=== PATIENT | female | born 1950 | race Two or more races ===

== ENCOUNTER 2021-02-01 15:18 | Emergency (ER) | payer OTHER ==
[~2021-02-01] VITALS: Ht 124.5 cm; Wt 56.7 kg
[2021-02-01] MEDS ORDERED: ASPirin 81 mg TAB PO ONE (16:15)
[2021-02-01 16:53] LABS: Basophils # (auto) 0.1 10 ^3/uL (0-0.2); Basophils % (auto) 0.6 % (0.0-2.0); Eosinophils # (auto) 0.3 10 ^3/uL (0-0.8); Eosinophils % (auto) 3.4 % (0.0-7.0); Hematocrit 37.4 % (36.0-46.0); Hemoglobin 12.7 g/dL (12.2-16.2); Mean Corpuscular Hemoglobin 32.2 pg (28.0-32.0); Mean Corpuscular Hgb Conc. 33.9 g/dL (32.0-36.0); Mean Corpuscular Volume 95.1 fL (80.0-100.0); Monocytes # (auto) 0.6 10 ^3/uL (0-1.3); Neutrophils # (auto) 5.7 10 ^3/uL (1.6-8.6); Nucleated Red Blood Cells % 0.1 %; Red Blood Cells 3.94 10^6/uL (4.0-5.20); Red Cell Distribution Width 13.2 % (11.8-14.3); White Blood Cell 9.7 10^3/uL (4.4-10.8)
[2021-02-01 17:01] LABS: Albumin 3.6 g/dL (3.4-5.0); Calcium 8.5 mg/dL (8.5-10.1); Potassium 3.7 mmol/L (3.5-5.1)
[2021-02-01 17:07] LABS: BUN/Creatinine Ratio 28.3; Bilirubin, Total 0.2 mg/dL (0.2-1.0); Total Protein 7.4 g/dL (6.4-8.2)
[2021-02-01 18:04] VITALS: BP 137/73
== END 2021-02-01 18:07 | disposition home or self-care (01) ==
LOC: ER 15:18
DX: R07.89 Other chest pain (principal); I10 Essential (primary) hypertension
CPT/HCPCS: 36415; 71045; 80053; 84484; 85025; 93005

== ENCOUNTER 2021-08-18 19:05 | Emergency (ER) | payer OTHER ==
[~2021-08-18] VITALS: Ht 152.4 cm; Wt 56.7 kg
[2021-08-18 22:18] VITALS: BP 144/78
[2021-08-18] MEDS ORDERED: SALI0.6549 (22:28)
== END 2021-08-18 22:35 | disposition home or self-care (01) ==
LOC: ER 19:07
DX: R04.0 Epistaxis (principal); I10 Essential (primary) hypertension; Z88.6 Allergy status to analgesic agent

== ENCOUNTER 2024-06-01 13:17 | Inpatient (IN) | payer OTHER ==
[~2024-06-01] VITALS: Ht 149.9 cm; Wt 62.0 kg
[~2024-06-01 13:17] MED LIST: SALI0.6549
--- NOTE | 2024-06-01 13:47 | ED.PDOC ---
GI ASSESSMENT HPI Comments 73Y F with PMHx HTN, osteoporosis, gallstones, and presents to ED for chief complaint of chest pain/epigastric abd pain x3days. Pt describes the chest/epigastric pain as sharp. Per pt, pain initially began on right side of chest. Pt denies SOB, n/v/d, constipation, and urinary symptoms however she states she had severe pain while walking. Pt is currently taking HCTZ for HTN. Chief Complaint: Abdominal Pain Time Seen by MD: 13:20 Primary Care Provider: DL Reviewed Notes: Nurses Notes, Medications, Allergies Allergies: Coded Allergies: Codeine (Verified Allergy, Severe, 02/01/21) Home Meds Active Scripts Saline (Nasal Moist) 0.65 % Spr, 0.65 % NA Q4HPRN PRN for 7 Days, #1 BOTTLE 0 Refills Prov:NICOLAS WALLACE MD 08/18/21 Information Source: Patient Mode of Arrival: Ambulatory Timing: Days Duration: Since onset Prehospital treatment: None Quality: Sharp Vomitus: None Stool: Normal Severity: Mild Recent: None Recent Hx of: None Pain Location: Epigastric Modifying Factors: Nothing Associated sign and symptoms: Abdominal Pain Past Medical History PAST MEDICAL HISTORY: Gallstones, HTN Surgical History: ELECTRON MICROSCOPIST History: No Pertinent ELECTRON MICROSCOPIST History Family History Family History: Reviewed,noncontributory to illness Social History Smoker: Non-Smoker Alcohol: Denies ETOH Use Drugs: Denies Drug Use Lives In: Home Constitutional: denies: chills, diaphoresis, fatigue, fever, malaise, sweats, weakness, others EENTM: denies: blurred vision, double vision, ear bleeding, ear discharge, ear drainage, ear pain, ear ringing, eye pain, eye redness, hearing loss, mouth pain, mouth swelling, nasal discharge, nose bleeding, nose congestion, nose pain, photophobia, tearing, throat pain, throat swelling, voice changes, others Respiratory: denies: cough, hemoptysis, orthopnea, SOB at rest, shortness of breath, SOB with excertion, stridor, wheezing, others Cardiovascular: denies: chest pain, dizzy spells, diaphoresis, Dyspnea on exertion, edema, irregular heart beat, left arm pain, lightheadedness, palpitations, PND, syncope, others Gastrointestinal: reports: abdominal pain; denies: abdomen distended, blood streaked bowels, constipated, diarrhea, dysphagia, difficulty swallowing, hematemesis, melena, nausea, poor appetite, poor fluid intake, rectal bleeding, rectal pain, vomiting, others Genitourinary: denies: abnormal vagina bleeding, burning, dyspareunia, dysuria, flank pain, frequency, hematuria, incontinence, pain, , vagina d ischarge, urgency, others Neurological: denies: dizziness, fainting, headache, left sided numbness, left sided weakness, numbness, paresthesia, pre-existing deficit, right sided numbness, right sided weakness, seizure, speech problems, tingling, tremors, weakness, others Musculoskeletal: denies: back pain, gout, joint pain, joint swelling, muscle pain, muscle stiffness, neck pain, others Integumetry: denies: bruises, change in color, change in hair/nails, dryness, laceration, lesions, lumps, rash, wounds, others Allergic/Immunocompromised: denies: Difficulty Healing, Frequent Infections, Hives, Itching, others Hematologic/Lymphatic: denies: anemia, blood clots, easy bleeding, easy bruising, swollen glands, others Endocrine: denies: excessive hunger, excessive sweating, excessive thirst, excessive urination, flushing, intolerance to cold, intolerance to heat, unexplained weight gain, unexplained weight loss, others Psychiatric: denies: anxiety, bipolar disorder, depression, hopeless, panic disorder, schizophrenia, sleepless, suicidal, others All Other Systems: Reviewed and Negative Physical Exam General Appearance: Mild Distress HEENT: Other (Pupils symmetric. Moist mucous membranes.) Neck: Full Range of Motion, Normal Inspection Respiratory: Lungs Clear, No Accessory Muscle Use, No Respiratory Distress, Normal Breath Sounds Cardiovascular: No Edema, No JVD, Regular Rate/Rhythm Breast Exam: Deferred Gastrointestinal: Epigastric, Tenderness Genitalia: Deferred Pelvic: Deferred Rectal: Deferred Extremities: Normal inspection, Normal range of motion, Non-tender, No pedal edema Neurologic: Alert (Oriented x4), Normal Affect, Normal Mood, Other (Ambulatory. No gross focal deficit.) Cerebellar Function: NOT DONE Reflexes: NOT DONE Skin: Dry, Normal Color, Warm Lymphatic: NOT DONE EKG EKG : Comments Sinus rhythm, rate 66, normal intervals, normal axis, normal QRS, nonspecific T change. Was a procedure done? Was a procedure done?: No GI differential Dx Differential Diagnosis: AAA, Cholecystitis, Gastritis/PUD, Gastroenteritis, Inflammatory BD, UTI, Stress Ulcer Other Differential Diagnosis ACS, NV, among others X-Ray, Labs, Meds, VS Vital Signs Date Time Temp Pulse Resp B/P (MAP) Pulse Ox O2 Delivery O2 Flow Rate FiO2 06/01/24 15:22 60 18 137/62 06/01/24 15:20 60 18 97 Room Air 06/01/24 15:20 98.2 60 18 137/62 (87) 97 98.2 06/01/24 14:42 65 16 127/56 06/01/24 13:25 66 06/01/24 13:21 97.9 69 18 132/53 (79) 95 06/01/24 13:21 Room Air* 0 21 Lab Test 06/01/24 17:54 06/01/24 15:20 06/01/24 14:48 06/01/24 13:30 Range/Units Troponin I High Sensitivity < 3 L < 3 L < 3 L </=34 ng/L Urine Color Light-yellow Yellow Urine Clarity Clear Clear Urine pH 5.0 5.0-9.0 Urine Specific [place] 1.009 1.001-1.035 Urine Protein Negative Negative Urine Ketones Negative Negative Urine Blood Negative Negative /uL Urine Nitrite Negative Negative Urine Bilirubin Negative Negative Urine Urobilinogen Normal Negative mg/dL Urine Leukocyte Esterase Trace Negative /uL Urine RBC 1 0 - 4 /hpf Urine Microscopic WBC 3 0-5 /HPF Urine Squamous Epithelial Cells Few <5 /hpf Urine Bacteria Few H None Seen /hpf Urine Glucose Normal Normal mg/dL White Blood Count 10.4 4.4-10.8 10^3/uL Red Blood Count 3.65 L 4.0-5.20 10^6/uL Hemoglobin 12.3 12.2-16.2 g/dL Hematocrit 35.5 L 36.0-46.0 % Mean Corpuscular Volume 97.1 80.0-100.0 fL Mean Corpuscular Hemoglobin 33.7 H 28.0-32.0 pg Mean Corpuscular Hemoglobin Concent 34.7 32.0-36.0 g/dL Red Cell Distribution Width 13.1 11.8-14.3 % Platelet Count 277 140-450 10^3/uL Mean Platelet Volume 8.0 6.9-10.8 fL Neutrophils (%) (Auto) 65.6 37.0-80.0 % Lymphocytes (%) (Auto) 28.7 10.0-50.0 % Monocytes (%) (Auto) 3.3 0.0-12.0 % Eosinophils (%) (Auto) 1.9 0.0-7.0 % Basophils (%) (Auto) 0.5 0.0-2.0 % Neutrophils # (Auto) 6.8 1.6-8.6 10 ^3/uL Lymphocytes # (Auto) 3.0 0.4-5.4 10 ^3/uL Monocytes # (Auto) 0.3 0-1.3 10 ^3/uL Eosinophils # (Auto) 0.2 0-0.8 10 ^3/uL Basophils # (Auto) 0.1 0-0.2 10 ^3/uL Nucleated Red Blood Cells 0.0 % Erythrocyte Sedimentation Rate 19 0-20 mm/hr Sodium Level 140 136-145 mmol/L Potassium Level 3.3 L 3.5-5.1 mmol/L Chloride Level 105 98-107 mmol/L Carbon Dioxide Level 25 20-31 mmol/L Anion Gap 10 5-15 Blood Urea Nitrogen 13 9-23 mg/dL Creatinine 0.64 0.550-1.02 mg/dL Glomerular Filtration Rate Calc 94 >90 mL/min BUN/Creatinine Ratio 20.3 H 10.0-20.0 Serum Glucose 134 H 74-106 mg/dL Calcium Level 9.8 8.7-10.4 mg/dL Total Bilirubin 0.4 0.2-1.0 mg/dL Aspartate Amino Transferase (AST) 15 13-40 U/L Alanine Aminotransferase (ALT) 16 7-40 U/L Alkaline Phosphatase 58 46-116 U/L C-Reactive Protein High Sensitivity 0.26 <1.0 mg/dL B-Type Natriuretic Peptide 75.88 0-100 pg/mL Total Protein 6.6 5.7-8.2 g/dL Albumin 4.3 3.2-4.8 g/dL Lipase 35 12-53 U/L Current Medications Medications (Trade) Dose Ordered Sig/Celestino Route Start Time Stop Time Status Last Admin Morphine Sulfate 4 mg ONCE ONCE IV 06/01/24 13:30 06/01/24 13:31 DC 06/01/24 14:42 Ondansetron HCl (Zofran) 4 mg ONCE ONCE IV 06/01/24 13:30 06/01/24 13:31 DC 06/01/24 14:37 Pantoprazole Sodium (Protonix) 40 mg ONCE ONCE IV 06/01/24 13:30 06/01/24 13:31 DC 06/01/24 14:38 Potassium Chloride (Klor-Con Tablet) 40 meq ONCE ONCE PO 06/01/24 17:45 06/01/24 17:46 DC 06/01/24 17:54 ORDERING PHYSICIAN: MIN VANESSA MD PROCEDURE(s): CXRP - CHEST PORTABLE REASON: cp ORDER NUMBER(s): [id number], ACCESSION NUMBER(s): [id number] EXAM: XY CHEST PORTABLE HISTORY: cp COMPARISON: CHEST PORTABLE on DOS: 02/01/21 TECHNIQUE: PA standing view of the chest was performed. FINDINGS: There is central interstitial prominence., similar to that seen previously No pneumothorax, consolidative infiltrates, or pulmonary edema. The heart is not enlarged. IMPRESSION: Reactive airways disease. The lungs are otherwise clear. RING PHYSICIAN: MIN VANESSA MD PROCEDURE(s): GBUS - GALLBLADDER REASON: epig pain h/o gs ORDER NUMBER(s): [id number], ACCESSION NUMBER(s): [id number] INDICATION: epig pain h/o gs TECHNIQUE: Multiple real-time sonographic images were obtained of the right upper quadrant. COMPARISON: None FINDINGS: Mild fatty infiltration of the liver, 12.8 cm. Common bile duct obscured by bowel gas. The gallbladder wall measures 1.8 mm. Gallstones visualized. The right kidney measures 7.5 cm. The right kidney is normal in contour, size, and shape. The echogenicity is normal. There is no hydronephrosis. The pancreas is not well visualized due to overlying bowel gas. IMPRESSION: 1. Gallstones. 2. Limited Exam CT scanning is suggested for further assessment. RING PHYSICIAN: MIN VANESSA MD PROCEDURE(s): ABPL - CT AB PEL WO CON-NO ORAL OR IV REASON: epig pain ORDER NUMBER(s): [id number], ACCESSION NUMBER(s): [id number] EXAM: CT CT AB PEL WO CON-NO ORAL OR IV HISTORY: epig pain COMPARISON: None TECHNIQUE: Helical CT images of the abdomen and pelvis were performed without IV contrast. Sagittal and coronal reformatted images were obtained. This CT exam was performed using one or more of the following dose reduction techniques: Automated exposure control, adjustment of the mA and/or kv according to patient size, or the use of iterative reconstruction techniques. Radiation Dose: Abdomen/Pelvis: CTDIvol 7.54 mGy, DLP 332.71 mGy*cm. FINDINGS: CT abdomen: The lung bases are clear. Probable multiple bile density gallstones. The noncontrast liver, spleen, pancreas, kidneys, and adrenal glands are unremarkable. No abdominal aortic aneurysm. CT pelvis: No abnormal bowel dilatation, free air, or free fluid. The appendix and urinary bladder are unremarkable. The uterus is surgically absent. There is moderate to severe lumbar degenerative disc disease and facet arthropathy. There is a chronic mild superior endplate compression fracture of T11. Areas mild osteoarthritis of the hips. IMPRESSION: 1. Cholelithiasis. 2. Postoperative changes of hysterectomy. 3. Moderate to severe lumbar degenerative disc disease and facet arthropathy, chronic T11 mild compression fracture. 4. No evidence of bowel obstruction, acute appendicitis, or other acute process in the abdomen or pelvis. X-Ray, Labs, Meds, VS Comment 73Y F with PMHx HTN, osteoporosis, gallstones, and presents to ED for chief complaint chest/epigastric pain x3days. Vitals remarkable for BP 132/53 Exam remarkable for epigastric tenderness to palpation Rhythm strip independently interpreted by me: Sinus rhythm, rate 66, no ectopy. CT abdomen and pelvis IMPRESSION: 1. Cholelithiasis. 2. Postoperative changes of hysterectomy. 3. Moderate to severe lumbar degenerative disc disease and facet arthropathy, chronic T11 mild compression fracture. 4. No evidence of bowel obstruction, acute appendicitis, or other acute process in the abdomen or pelvis. Right upper quadrant ultrasound IMPRESSION: 1. Gallstones. 2. Limited Exam Chest x-ray IMPRESSION: Reactive airways disease. The lungs are otherwise clear. Patient treated with the following in the ED: Morphine 4 mg IV, Zofran 4 mg IV, KCl 40 mEq p.o. On re-evaluation, patient states pain has improved. Vitals are stable. There still epigastric tenderness to palpation on exam. Plan is to admit the patient for pain control, GI evaluation and to rule out ACS. Time of 1ST Reevaluation: 13:50 Reevaluation 1ST: Unchanged Patient Education/Counseling: Diagnosis, Treatment Family Education/Counseling: No Family Present Departure 1 Departure Time of Disposition: 16:00 Impression: Primary Impression: Biliary colic Additional Impressions: Hypokalemia Chest pain with high risk for cardiac etiology Disposition: ADMITTED INPATIENT Admit to: Med Surg Condition: Fair Critical Care Note Critical Care Time?: No Stability Stability form required: No Heart Score Heart Score: Heart Score Response (Comments) Value History Moderate Suspicious 1 EKG Repolarization Disturb 1 Age >65 2 Risk Factors 1 or 2 risk factors 1 Troponin Normal limit 0 Total 5 I personally scribed for MIN VANESSA MD (KIRAN) on 06/01/24 at 13:47. Electronically submitted by Jewell Gallagher ([employer]). I personally scribed for MIN VANESSA MD (KIRAN) on 06/01/24 at 14:19. Electronically submitted by Jewell Gallagher ([employer]). I personally scribed for MIN VANESSA MD (KIRAN) on 06/01/24 at 14:29. Electronically submitted by Jewell Gallagher ([employer]). I personally scribed for MIN VANESSA MD (KIRAN) on 06/01/24 at 14:30. Electronically submitted by Jewell Gallagher ([employer]). MIN VANESSA MD Jun 01, 2024 13:47
[2024-06-01 14:05] LABS: Basophils # (auto) 0.1 10 ^3/uL (0-0.2); Basophils % (auto) 0.5 % (0.0-2.0); Eosinophils # (auto) 0.2 10 ^3/uL (0-0.8); Eosinophils % (auto) 1.9 % (0.0-7.0); Hematocrit 35.5 % (36.0-46.0); Hemoglobin 12.3 g/dL (12.2-16.2); Lymphocytes % (auto) 28.7 % (10.0-50.0); Mean Corpuscular Hemoglobin 33.7 pg (28.0-32.0); Mean Corpuscular Hgb Conc. 34.7 g/dL (32.0-36.0); Mean Corpuscular Volume 97.1 fL (80.0-100.0); Monocytes # (auto) 0.3 10 ^3/uL (0-1.3); Monocytes % (auto) 3.3 % (0.0-12.0); Neutrophils # (auto) 6.8 10 ^3/uL (1.6-8.6); Neutrophils % (auto) 65.6 % (37.0-80.0); Platelet Count (auto) 277 10^3/uL (140-450); Red Blood Cells 3.65 10^6/uL (4.0-5.20); Red Cell Distribution Width 13.1 % (11.8-14.3); White Blood Cell 10.4 10^3/uL (4.4-10.8)
--- NOTE | 2024-06-01 14:12 | DVH ---
EXAM: XY CHEST PORTABLE HISTORY: cp COMPARISON: CHEST PORTABLE on DOS: 02/01/21 TECHNIQUE: PA standing view of the chest was performed. FINDINGS: There is central interstitial prominence., similar to that seen previously No pneumothorax, consolida tive infiltrates, or pulmonary edema. The heart is not enlarged. IMPRESSION: Reactive airways disease. The lungs are otherwise clear.
--- NOTE | 2024-06-01 14:24 | DVH ---
EXAM: CT CT AB PEL WO CON-NO ORAL OR IV HISTORY: epig pain COMPARISON: None TECHNIQUE: Helical CT images of the abdomen and pelvis were performed without IV contrast. Sagittal a nd coronal reformatted images were obtained. This CT exam was performed using one or more of the foll owing dose reduction techniques: Automated exposure control, adjustment of the mA and/or kv according to patient size, or the use of iterative reconstruction techniques. Radiation Dose: Abdomen/Pelvis: CTDIvol 7.54 mGy, DLP 332.71 mGy*cm. FINDINGS: CT abdomen: The lung bases are clear. Probable multiple bile density gallstones. The noncon trast liver, spleen, pancreas, kidneys, and adrenal glands are unremarkable. No abdominal aortic aneu rysm. CT pelvis: No abnormal bowel dilatation, free air, or free fluid. The appendix and urinary bladder ar e unremarkable. The uterus is surgically absent. There is moderate to severe lumbar degenerative disc disease and facet arthropathy. There is a chronic mild superior endplate compression fracture of T11 . Areas mild osteoarthritis of the hips. IMPRESSION: 1. Cholelithiasis. 2. Postoperative changes of hysterectomy. 3. Moderate to severe lumbar degenerative disc disease and facet arthropathy, chronic T11 mild compre ssion fracture. 4. No evidence of bowel obstruction, acute appendicitis, or other acute process in the abdomen or pel vis.
[2024-06-01 14:25] LABS: Albumin 4.3 g/dL (3.2-4.8); Anion Gap 10 (5-15); Calcium 9.8 mg/dL (8.7-10.4); Carbon Dioxide 25 mmol/L (20-31); Chloride 105 mmol/L (98-107); Lipase 35 U/L (12-53); Sodium 140 mmol/L (136-145)
[2024-06-01 14:26] LABS: Bilirubin, Total 0.4 mg/dL (0.2-1.0)
--- NOTE | 2024-06-01 14:26 | DVH ---
INDICATION: epig pain h/o gs TECHNIQUE: Multiple real-time sonographic images were obtained of the right upper quadrant. COMPARISON: None FINDINGS: Mild fatty infiltration of the liver, 12.8 cm. Common bile duct obscured by bowel gas. The gallbladder wall measures 1.8 mm. Gallstones visualized. The right kidney measures 7.5 cm. The right kidney is normal in contour, size, and shape. The echog enicity is normal. There is no hydronephrosis. The pancreas is not well visualized due to overlying bowel gas. IMPRESSION: 1. Gallstones. 2. Limited Exam CT scanning is suggested for further assessment.
[2024-06-01] MEDS: ONDANSETRON HCL 4 MG/2 ML VIAL IV ONE (14:37)
[2024-06-01] MEDS: PANTOPRAZOLE 40 MG/10 ML VIAL INJ IV ONE (14:38)
[2024-06-01] MEDS: MORPHINE SULFATE 4 MG/ML SYR/VIAL IV ONE (14:42)
[2024-06-01 14:49] LABS: Glucose 134 mg/dL (74-106); Potassium 3.3 mmol/L (3.5-5.1)
[2024-06-01 15:06] LABS: BUN/Creatinine Ratio 20.3 (10.0-20.0)
[2024-06-01 15:07] LABS: Alanine Aminotransferase 16 U/L (7-40); Alkaline Phosphatase 58 U/L (46-116); Aspartate Aminotransferase 15 U/L (13-40); Blood Urea Nitrogen 13 mg/dL (9-23); Total Protein 6.6 g/dL (5.7-8.2)
[2024-06-01 16:03] LABS: Urine Bacteria FEW /hpf (None Seen); Urine Blood Negative /uL (Negative); Urine Clarity Clear (Clear); Urine Color Light-Yellow (Yellow); Urine Protein, UAD Negative (Negative); Urine Specific Gravity 1.009 (1.001-1.035); Urine Squamous Epithelial Cell FEW /hpf (<5); Urine Urobilinogen Normal (Negative); Urine WBC 3 /HPF (0-5)
[2024-06-01] MEDS: POTASSIUM CHL 20 Meq TABLET PO ONE (17:54)
--- NOTE | 2024-06-01 18:19 | ECG ---
[facility] Test Date: 2024-06-01 Test Time: 13:25:27 Pat Name: PETER MORALES Department: ER Room: 0216T Gender: F Title Manager: ER : 1950 Requested By: MIN REYES Order Number: [id number] Reading MD: Fazal Cunningham Measurements Intervals [place] Rate: 66 P: 57 IN: 176 QRS: 52 QRSD: 82 T: 53 QT: 420 QTc: 441 Interpretive Statements Sinus rhythm Abnormal R-wave progression, early transition Minimal ST elevation, inferior leads Electronically Signed On 06-02-2024 18:47:15 PST by Fazal Cunningham Please click the below link to view image of tracing.
[2024-06-01] MEDS ORDERED: DOCUSATE SOD 100 MG CAP PO PRN (19:30)
[2024-06-01] MEDS ORDERED: SODIUM CHLORIDE 0.9% 1,000 ML IV SCH (19:30)
[2024-06-01] MEDS ORDERED: ONDANSETRON HCL 4 MG/2 ML VIAL IV PRN ×2 (19:30→19:45)
[2024-06-01] MEDS ORDERED: MORPHINE SULFATE INJ 2 MG/ml SYRG IV PRN ×3 (19:30→19:45)
[2024-06-01] MEDS ORDERED: ACETAMINOPHEN 325 MG TAB PO PRN (19:30)
[2024-06-01] MEDS ORDERED: NITROGLYCERIN 0.4 MG SL TAB SL PRN (19:45)
--- NOTE | 2024-06-01 19:52 | DVHHP2 ---
History of Present Illness Reason for Visit: Chest pain History of Present Illness Patient was a 73-year-old female presenting to the emergency room with chest pain and epigastric pain. Patient reports that two days ago she was awakened from her sleep with substernal chest pain, also radiating to the right side of her chest, that she described as indigestion. She denies having any nausea or vomiting, diaphoresis, or dizziness with an episode. The patient now reports having persistent epigastric pain, worsening with activity. She denies having any other associated symptoms. Patient has a known history of cholelithiasis, and states that this pain is different than when she had problems with her abdominal pain in the past. Patient was negative with her Blevins's sign. Troponins at this time are all negative. Mild ST changes noted, nonspecific on 12 lead ECG. Patient will be admitted for rule out ACS. Cardiovascular: HTN Pulmonary: Other (Nicotine dependence) Past Surgical History: Smoke: # pack years (Patient was states she smoked one pack of cigarettes for the past 40 years, now intermittently smokes.) ALCOHOL: none Drugs: None Lives: with Family Domestic Violence: Neg Review of Systems Constitutional: No: Fever, Chills, Sweats, Weakness, Malaise, Other Eyes: No: Pain, Vision change, Conjunctivae inflammation, Eyelid inflammation, Other, Redness ENT: No: Ear pain, Ear discharge, Nose pain, Nose discharge, Nose congestion, Mouth pain, Mouth swelling, Throat pain, Throat swelling, Other Respiratory: No: Cough, Dry, Shortness of breath, SOB with excertion, Wheezing, Hemoptysis, Pleuritic Pain, Sputum, Wheezing, Other Cardiovascular: Chest Pain Gastrointestinal: Abdominal Pain Genitourinary: No Dysuria, No Frequency, No Incontinence, No Hematuria, No Retention, No Other Musculoskeletal: No: other, neck pain, shoulder pain, arm pain, back pain, hand pain, leg pain, foot pain Skin: No: Rash, Lesions, Jaundice, Bruising, Other Neurological: No: Weakness, Numbness, Incoordination, Change in speech, Confusion, Seizures, Other Allergies: Coded Allergies: Codeine (Verified Allergy, Severe, 02/01/21) Medications Current Medications Medications Dose Ordered Sig/Celestino Route Start Time Stop Time Status Last Admin Dose Admin Pantoprazole Sodium 40 mg DAILY IV 06/02/24 10:00 Ondansetron HCl 4 mg Q4HP PRN IV 06/01/24 19:30 Docusate Sodium 100 mg BIDPRN PRN PO 06/01/24 19:30 Acetaminophen 650 mg Q6HP PRN PO 06/01/24 19:30 Morphine Sulfate 2 mg Q4HPRN PRN IV 06/01/24 19:30 Nitroglycerin 0.4 mg Q5MINP PRN SL 06/01/24 19:45 UNV Morphine Sulfate 2 mg Q30M PRN IV 06/01/24 19:45 UNV Morphine Sulfate 1 mg Q4HPRN PRN IV 06/01/24 19:45 UNV Acetaminophen/ Hydrocodone Bitart 1 tab Q6HPRN PRN PO 06/01/24 19:45 UNV Acetaminophen 500 mg Q8HP PRN PO 06/01/24 19:45 UNV Ondansetron HCl 4 mg Q6HP PRN IV 06/01/24 19:45 UNV Exam Vital Signs Vital Signs Date Time Temp Pulse Resp B/P (MAP) Pulse Ox O2 Delivery O2 Flow Rate FiO2 06/01/24 15:22 60 18 137/62 06/01/24 15:20 97 Room Air 06/01/24 15:20 98.2 98.2 06/01/24 13:21 0 21 General Appearance: Alert, Oriented X3, Cooperative, mild distress HEENT: Atraumatic, PERRLA Respiratory: Clear to auscultation Cardiovascular: Normal S1, Normal S2 Abdominal: Normal bowel sounds, No tenderness Neuro: Normal speech, Strength at 5/5 X4 ext, Normal tone, Sensation intact, Cranial nerves 3-12 NL Psych/Mental Status: Mental status NL, Mood NL Labs/Xrays Labs Test 06/01/24 17:54 06/01/24 15:20 06/01/24 13:30 Range/Units Troponin I High Sensitivity < 3 L </=34 ng/L Urine Color Light-yellow Yellow Urine Clarity Clear Clear Urine pH 5.0 5.0-9.0 Urine Specific [place] 1.009 1.001-1.035 Urine Protein Negative Negative Urine Ketones Negative Negative Urine Blood Negative Negative /uL Urine Nitrite Negative Negative Urine Bilirubin Negative Negative Urine Urobilinogen Normal Negative mg/dL Urine Leukocyte Esterase Trace Negative /uL Urine RBC 1 0 - 4 /hpf Urine Microscopic WBC 3 0-5 /HPF Urine Squamous Epithelial Cells Few <5 /hpf Urine Bacteria Few H None Seen /hpf Urine Glucose Normal Normal mg/dL White Blood Count 10.4 4.4-10.8 10^3/uL Red Blood Count 3.65 L 4.0-5.20 10^6/uL Hemoglobin 12.3 12.2-16.2 g/dL Hematocrit 35.5 L 36.0-46.0 % Mean Corpuscular Volume 97.1 80.0-100.0 fL Mean Corpuscular Hemoglobin 33.7 H 28.0-32.0 pg Mean Corpuscular Hemoglobin Concent 34.7 32.0-36.0 g/dL Red Cell Distribution Width 13.1 11.8-14.3 % Platelet Count 277 140-450 10^3/uL Mean Platelet Volume 8.0 6.9-10.8 fL Neutrophils (%) (Auto) 65.6 37.0-80.0 % Lymphocytes (%) (Auto) 28.7 10.0-50.0 % Monocytes (%) (Auto) 3.3 0.0-12.0 % Eosinophils (%) (Auto) 1.9 0.0-7.0 % Basophils (%) (Auto) 0.5 0.0-2.0 % Neutrophils # (Auto) 6.8 1.6-8.6 10 ^3/uL Lymphocytes # (Auto) 3.0 0.4-5.4 10 ^3/uL Monocytes # (Auto) 0.3 0-1.3 10 ^3/uL Eosinophils # (Auto) 0.2 0-0.8 10 ^3/uL Basophils # (Auto) 0.1 0-0.2 10 ^3/uL Nucleated Red Blood Cells 0.0 % Sodium Level 140 136-145 mmol/L Potassium Level 3.3 L 3.5-5.1 mmol/L Chloride Level 105 98-107 mmol/L Carbon Dioxide Level 25 20-31 mmol/L Anion Gap 10 5-15 Blood Urea Nitrogen 13 9-23 mg/dL Creatinine 0.64 0.550-1.02 mg/dL Glomerular Filtration Rate Calc 94 >90 mL/min BUN/Creatinine Ratio 20.3 H 10.0-20.0 Serum Glucose 134 H 74-106 mg/dL Calcium Level 9.8 8.7-10.4 mg/dL Total Bilirubin 0.4 0.2-1.0 mg/dL Aspartate Amino Transferase (AST) 15 13-40 U/L Alanine Aminotransferase (ALT) 16 7-40 U/L Alkaline Phosphatase 58 46-116 U/L B-Type Natriuretic Peptide 75.88 0-100 pg/mL Total Protein 6.6 5.7-8.2 g/dL Albumin 4.3 3.2-4.8 g/dL Lipase 35 12-53 U/L Assessment/Plan Assessment/Plan Impression: -rule out ACS -cholelithiasis -nicotine dependence -primary hypertension -hypokalemia Plan: -admit to telemetry floor -cardiology consultation -echocardiogram -PPI -gallbladder ultrasound reviewed -potassium replacement -repeat labs in a.m. After having a thorough discussion with the patient, with her having persistent substernal chest pain, worsening with ambulation, he was discussed with the patient should be evaluated overnight, with echocardiogram, cardiology consultation. While PUD/GERD may be part of the differential diagnosis, patient was have risk factors for heart disease in addition to having mild changes in EKG. Total time spent with patient discussing and formulating plan of care: 35 minutes. This medical document was created using an electronic medical record system with [employer] dictation system. Although this document has been carefully reviewed, there may still be some phonetic and typographical errors. These areas are purely typographical due to imperfections of the software programs, and do not reflect any compromise in the patient's medical care. Plan discussed with: Patient, Other (RN) My Orders Orders - JEFFREY STILES [employer] Procedure Category Date Status Time Admit ADMIT 06/01/24 Transmitted 19:38 Nitroglycerin PHA 06/01/24 Logged Sublingual (Ntrostat 19:45 Morphine Sulfate PHA 06/01/24 Logged Injection 19:45 Stat Ekg For Chest CORTEZ 06/01/24 In Process Pain 19:38 Notify Of Changes CORTEZ 06/01/24 In Process From Base 19:38 Sustainable Landscape Architect For CORTEZ 06/01/24 In Process 24 Hours 19:38 Emergency Dysrhythmia CORTEZ 06/01/24 In Process Protocol 19:38 Rhythm Strips Once CORTEZ 06/01/24 In Process Every Shift 19:38 Oxygen By Nasal RT 06/01/24 Transmitted Cannula 19:38 Echo 2d Mode Cardiac US 06/01/24 Logged DOP 19:38 Erythrocyte LAB 06/01/24 Logged Sedimentation Rate 19:38 C-Reactive Protein LAB 06/01/24 Logged 19:38 Morphine Sulfate PHA 06/01/24 Logged Injection 19:45 Hydrocodone-Acet PHA 06/01/24 Logged 5/325mg Tab (Willard 19:45 Acetaminophen Tab Or PHA 06/01/24 Logged Cap (Tylenol Tablet 19:45 Ondansetron Hcl PHA 06/01/24 Logged (Zofran) 19:45 Cardiac DIET 06/02/24 Verified Diet-2gna,Lofat,Lochol Breakfast Date of Service: Jun 01, 2024 Billing Provider: JEFFREY STILES NP Common Visit Codes: [id number] INP/OBS CARE (HIGH) JEFFREY STILES NP Jun 01, 2024 19:52
[2024-06-01 20:33] LABS: Erythrocyte Sedimentation Rate 19 mm/hr (0-20)
[2024-06-01 22:22] VITALS: BP 105/57; PULSE 60; RESP 18; TEMP 97.5; O2SAT 98
[2024-06-01 22:43] VITALS: PULSE 60; RESP 18; O2SAT 96
[2024-06-02] VITALS (8 sets, daily range): BP systolic 107–137; BP diastolic 56–72; PULSE 53–74; RESP 16–20; TEMP 97.5–98.2; O2SAT 92–100
[2024-06-02] MEDS: ACETAMINOPHEN 500 MG TAB or CAP PO PRN (00:18)
[2024-06-02] MEDS: PANTOPRAZOLE 40 MG TAB PO SCH (06:04)
[2024-06-02 06:59] LABS: Basophils # (auto) 0.1 10 ^3/uL (0-0.2); Basophils % (auto) 0.6 % (0.0-2.0); Eosinophils # (auto) 0.2 10 ^3/uL (0-0.8); Eosinophils % (auto) 2.3 % (0.0-7.0); Hematocrit 35.3 % (36.0-46.0); Hemoglobin 11.9 g/dL (12.2-16.2); Lymphocytes # (auto) 2.3 10 ^3/uL (0.4-5.4); Mean Corpuscular Hemoglobin 33.1 pg (28.0-32.0); Mean Corpuscular Hgb Conc. 33.8 g/dL (32.0-36.0); Mean Corpuscular Volume 97.9 fL (80.0-100.0); Monocytes # (auto) 0.6 10 ^3/uL (0-1.3); Monocytes % (auto) 6.4 % (0.0-12.0); Neutrophils % (auto) 65.7 % (37.0-80.0); Nucleated Red Blood Cells % 0.1 %; Platelet Count (auto) 250 10^3/uL (140-450); Red Blood Cells 3.61 10^6/uL (4.0-5.20); Red Cell Distribution Width 12.9 % (11.8-14.3); White Blood Cell 9.2 10^3/uL (4.4-10.8)
[2024-06-02 07:22] LABS: Alanine Aminotransferase 14 U/L (7-40); Alkaline Phosphatase 50 U/L (46-116); Anion Gap 7 (5-15); BUN/Creatinine Ratio 22.9 (10.0-20.0); Blood Urea Nitrogen 16 mg/dL (9-23); Calcium 9.3 mg/dL (8.7-10.4); Carbon Dioxide 25 mmol/L (20-31); Glucose 92 mg/dL (74-106); Potassium 3.8 mmol/L (3.5-5.1); Sodium 141 mmol/L (136-145); Total Protein 6.2 g/dL (5.7-8.2)
[2024-06-02 07:23] LABS: Albumin 3.9 g/dL (3.2-4.8); Aspartate Aminotransferase 13 U/L (13-40); Bilirubin, Total 0.3 mg/dL (0.2-1.0)
[2024-06-02 07:30] LABS: Chloride 109 mmol/L (98-107)
[2024-06-02] MEDS ORDERED: PANTOPRAZOLE 40 MG/10 ML VIAL INJ IV SCH (10:00)
[2024-06-02] MEDS ORDERED: HYDR25TA4 PO (10:29)
[2024-06-02] MEDS ORDERED: RALO60TA14 PO (10:30)
[2024-06-02] MEDS: NICOTINE 7MG/24HR TOPICAL PATCH TD ONE (11:30)
--- NOTE | 2024-06-02 11:34 | DVHINCON2 ---
Date Seen: Jun 02, 2024 Referring Physician CISCO Vazquez Reason for Consultation Rule out ACS History of Present Illness This is a 73-year-old female who presented to the emergency room with a chief complaint of chest pain. The patient reports she experienced chest pain this past Monday/Monday and described as substernal, persistent, and as a burning sensation after eating a late dinner. Later on the pain progressed to the epigastric area prompting her to seek further medical attention. Denies palpitations, diaphoresis, shortness of breath, dizziness, or syncopal events. She underwent a 12 lead electrocardiogram revealing a sinus rhythm with early repolarization. Serial troponin levels are negative. Family history is significant for two brothers with coronary artery disease undergoing PCIs with stent placement. Significant medical history includes hypertension, cholelithiasis, osteoporosis, lumbar DDD, and remote heavy tobacco use for 40 years and now occasionally. Past Medical History Past medical history reviewed. No other significant than mentioned above. Past Surgical History Hysterectomy Family History: Arthritis G8 MOTHER Hypertension G8 MOTHER Family History Significant for CV disease including two brothers with CAD undergoing PCIs with stent placement. Social History Heavy tobacco use for 40 years and now occasionally. Denies use of alcohol or drug abuse. Allergies: Coded Allergies: Codeine (Verified Allergy, Severe, 02/01/21) Home Meds Active Scripts Saline (Nasal Moist) 0.65 % Spr, 0.65 % NA Q4HPRN PRN for 7 Days, #1 BOTTLE 0 Refills Prov:NICOLAS WALLACE MD 08/18/21 Reported Medications Raloxifene Hydrochloride (EVISTA TABLET) 60 Mg Tb, 1 TAB PO DAILY, #30 TAB 11 Refills 06/02/24 Hydrochlorothiazide (Hydrochlorothiazide) 25 Mg Tab, 1 TAB PO DAILY for HTN, #30 TAB 5 Refills 06/02/24 Home Meds Home medications reviewed. Current Medications Current Medications Medications (Trade) Dose Ordered Sig/Celestino Route PRN Reason Start Time Stop Time Status Last Admin Pantoprazole Sodium (Protonix) 40 mg DAILY IV 06/02/24 10:00 06/01/24 19:48 DC Sodium Chloride 1,000 ml @ 60 mls/hr [id number] IV 06/01/24 19:30 06/01/24 19:41 DC Ondansetron HCl (Zofran) 4 mg Q4HP PRN IV NAUSEA / VOMITING 06/01/24 19:30 06/01/24 19:48 DC Docusate Sodium (Colace Capsule) 100 mg BIDPRN PRN PO FOR CONSTIPATION 06/01/24 19:30 06/01/24 19:48 DC Acetaminophen (Tylenol Tablet) 650 mg Q6HP PRN PO PAIN SCALE 1-3 OR TEMP>100.4 06/01/24 19:30 06/01/24 19:48 DC Morphine Sulfate 2 mg Q4HPRN PRN IV SEVERE PAIN (7-10 PAIN SCALE) 06/01/24 19:30 06/01/24 19:48 DC Nitroglycerin (Ntrostat Sublingual) 0.4 mg Q5MINP PRN SL FOR CHEST PAIN 06/01/24 19:45 Morphine Sulfate 2 mg Q30M PRN IV FOR CHEST PAIN 06/01/24 19:45 Morphine Sulfate 1 mg Q4HPRN PRN IV SEVERE PAIN (7-10 PAIN SCALE) 06/01/24 19:45 Acetaminophen/ Hydrocodone Bitart ([place] 5/325MG Tab) 1 tab Q6HPRN PRN PO MODERATE PAIN (4-6 PAIN SCALE) 06/01/24 19:45 Acetaminophen (Tylenol Tablet Or Capsule) 500 mg Q8HP PRN PO PAIN SCALE 1-3 OR TEMP>100.4 06/01/24 19:45 06/02/24 00:18 Ondansetron HCl (Zofran) 4 mg Q6HP PRN IV NAUSEA / VOMITING 06/01/24 19:45 Pantoprazole Sodium (Protonix Tablet) 40 mg DAILY@0600 PO 06/02/24 06:00 06/02/24 06:08 Review of Systems Constitutional: No symptom reported Ears, Nose, & Throat: No symptom reported Eyes: No symptom reported Neurological: No symptoms reported Pulmonary/Respiratory: No symptom reported Cardiovascular: Chest pain Gastrointestinal: Epigastric pain Genitourinary: No symptom reported Musculoskeletal: No symptom reported Skin: No symptom reported Psychiatric: No symptom reported Endocrine: No symptom reported Hemotologic/Lymphatic: No symptom reported Vital Signs Vital Signs Date Time Temp Pulse Resp B/P (MAP) Pulse Ox O2 Delivery O2 Flow Rate FiO2 06/02/24 09:00 97.5 56 20 115/72 (86) 92 97.5 06/02/24 08:00 Room Air* 0 21 Physical Exam General Appearance: Cooperative. Well developed. Well nourished. In no acute distress Head Exam: Normal inspection Neck Exam: Normal inspection. Non-tender. Normal alignment Pulmonary/Respiratory: Chest non-tender. Clear bilateral breath sounds Cardiovascular/Chest: Regular rate and rhythm. S1, S2. Sinus rhythm with early repolarization. No murmurs. No JVD. Peripheral Pulses: 2+ Radial (R). 2+ Radial (L). 2+ Pedal (R). 2+ Pedal (L) Abdominal Exam: Normal bowel sounds. Soft. Nontender. No hepatospenomegaly. No masses Ankle Exam: Negative ankle edema Lower extremities: Negative lower extremity edema Neuro/Mental Status: A&O x4. Coherent Thoughts/Psych: Normal thought pattern. Appropriate mood and affect. Good judgement and insight Appearance: In no acute distress Skin Exam: Normal inspection. Normal color. Warm. Dry Labs/Diagnostic Data Labs Test 06/02/24 06:25 06/01/24 17:54 06/01/24 15:20 06/01/24 13:30 Range/Units White Blood Count 9.2 4.4-10.8 10^3/uL Red Blood Count 3.61 L 4.0-5.20 10^6/uL Hemoglobin 11.9 L 12.2-16.2 g/dL Hematocrit 35.3 L 36.0-46.0 % Mean Corpuscular Volume 97.9 80.0-100.0 fL Mean Corpuscular Hemoglobin 33.1 H 28.0-32.0 pg Mean Corpuscular Hemoglobin Concent 33.8 32.0-36.0 g/dL Red Cell Distribution Width 12.9 11.8-14.3 % Platelet Count 250 140-450 10^3/uL Mean Platelet Volume 8.0 6.9-10.8 fL Neutrophils (%) (Auto) 65.7 37.0-80.0 % Lymphocytes (%) (Auto) 25.0 10.0-50.0 % Monocytes (%) (Auto) 6.4 0.0-12.0 % Eosinophils (%) (Auto) 2.3 0.0-7.0 % Basophils (%) (Auto) 0.6 0.0-2.0 % Neutrophils # (Auto) 6.0 1.6-8.6 10 ^3/uL Lymphocytes # (Auto) 2.3 0.4-5.4 10 ^3/uL Monocytes # (Auto) 0.6 0-1.3 10 ^3/uL Eosinophils # (Auto) 0.2 0-0.8 10 ^3/uL Basophils # (Auto) 0.1 0-0.2 10 ^3/uL Nucleated Red Blood Cells 0.1 % Sodium Level 141 136-145 mmol/L Potassium Level 3.8 3.5-5.1 mmol/L Chloride Level 109 H 98-107 mmol/L Carbon Dioxide Level 25 20-31 mmol/L Anion Gap 7 5-15 Blood Urea Nitrogen 16 9-23 mg/dL Creatinine 0.70 0.550-1.02 mg/dL Glomerular Filtration Rate Calc 92 >90 mL/min BUN/Creatinine Ratio 22.9 H 10.0-20.0 Serum Glucose 92 74-106 mg/dL Calcium Level 9.3 8.7-10.4 mg/dL Total Bilirubin 0.3 0.2-1.0 mg/dL Aspartate Amino Transferase (AST) 13 13-40 U/L Alanine Aminotransferase (ALT) 14 7-40 U/L Alkaline Phosphatase 50 46-116 U/L Total Protein 6.2 5.7-8.2 g/dL Albumin 3.9 3.2-4.8 g/dL Troponin I High Sensitivity < 3 L </=34 ng/L Urine Color Light-yellow Yellow Urine Clarity Clear Clear Urine pH 5.0 5.0-9.0 Urine Specific [place] 1.009 1.001-1.035 Urine Protein Negative Negative Urine Ketones Negative Negative Urine Blood Negative Negative /uL Urine Nitrite Negative Negative Urine Bilirubin Negative Negative Urine Urobilinogen Normal Negative mg/dL Urine Leukocyte Esterase Trace Negative /uL Urine RBC 1 0 - 4 /hpf Urine Microscopic WBC 3 0-5 /HPF Urine Squamous Epithelial Cells Few <5 /hpf Urine Bacteria Few H None Seen /hpf Urine Glucose Normal Normal mg/dL Erythrocyte Sedimentation Rate 19 0-20 mm/hr C-Reactive Protein High Sensitivity 0.26 <1.0 mg/dL B-Type Natriuretic Peptide 75.88 0-100 pg/mL Lipase 35 12-53 U/L Assessment Chest pain rule out coronary artery disease Significant family history for CAD Primary hypertension Nicotine dependence Plan/Recommendation (Dr. Cunningham) Scheduled for a transthoracic echocardiogram to evaluate cardiac function and a Cardiolite stress test to rule out coronary ischemia. In the meantime, initiate single-antiplatelet therapy and nicotine patch. Continue PPI. Monitor ECG changes and notify accordingly. Continue chest pain protocol. Thank you for allowing us to participate in this patient's care. Please call if you have any questions or concerns. This medical document was created using an electronic medical record system with voice recognition software and computerized dictation system. Although this document has been carefully reviewed, there might still be some phonetic and ty pographical errors. Occasional wrong-word or ``sound-alike substitutions may have occurred due to the inherent limitations of voice recognition software. These areas are purely typographical due to imperfections of the software programs and do not reflect any compromise in the patient's medical care. Please read the chart carefully and recognize, using context, where these sub stitutions have occurred. Plan discussed with: Patient, Other NYHA Physical activity limitations: NA Date of Service: Jun 02, 2024 Billing Provider: GENOVEVA WOODY Cardiology Common Codes: [id number] INP/OBS CARE (High) GENOVEVA WOODY Jun 02, 2024 11:34
[2024-06-02 12:29] LABS: Triglycerides 155 mg/dL (< 150)
[2024-06-02 12:30] LABS: LDL Cholesterol 88 mg/dL (< 100)
[2024-06-02 12:31] LABS: Cholesterol 133 mg/dL (< 200)
[2024-06-02 12:35] LABS: HDL Cholesterol 30 mg/dL (40-59)
--- NOTE | 2024-06-02 12:37 | DVHPN2 ---
Subjective 73-year-old female with a history significant for hypertension osteoporosis and gallstones came with chief complaint of abdominal pain for 2 days. The pain is in the epigastric area associated with some chest pain with no radiation and no nausea or vomiting He had it before few months before and she was told she has gallstones and she went and saw a surgeon but she elected to wait and did not have surgery for it Today her pain has resolved. She had the pain actually at work 2 days ago after she ate pizza for lunch. Changes from previous H/P or p: Changes Eyes: No Pain, No Vision change, No Conjunctivae inflammation, No Eyelid inflammation, No Other, No Redness ENT: No Ear pain, No Ear discharge, No Nose pain, No Nose discharge, No Nose congestion, No Mouth pain, No Mouth swelling, No Throat pain, No Throat swelling, No Other Cardiovascular: Chest Pain Respiratory: No Cough, No Dry, No Shortness of breath, No SOB with excertion, No Wheezing, No Hemoptysis, No Pleuritic Pain, No Sputum, No Other Gastrointestinal: Abdominal Pain Genitourinary: No Dysuria, No Frequency, No Incontinence, No Hematuria, No Retention, No Other Musculoskeletal: No other, No neck pain, No shoulder pain, No arm pain, No back pain, No hand pain, No leg pain, No foot pain Skin: No Rash, No Lesions, No Jaundice, No Bruising, No Other Objective Vitals Vital Signs Date Time Temp Pulse Resp B/P (MAP) Pulse Ox O2 Delivery O2 Flow Rate FiO2 06/02/24 09:00 97.5 56 20 115/72 (86) 92 97.5 06/02/24 08:00 Room Air* 0 21 Intake/Output Intake and Output 06/02/24 07:00 Intake Total 150 ml Balance 150 ml Intake Oral 150 ml # Voids 3 General Appearance: Alert, Oriented X3, Cooperative, No acute distress Lungs: Clear to auscultation, Normal air movement Cardiovascular: Regular rate, Normal S1 Abdomen: Normal bowel sounds, Soft, No tenderness Extremities: No edema Medications Current Medications Medications Dose Ordered Sig/Celestino Route Start Time Stop Time Status Last Admin Dose Admin Nitroglycerin 0.4 mg Q5MINP PRN SL 06/01/24 19:45 Morphine Sulfate 2 mg Q30M PRN IV 06/01/24 19:45 Morphine Sulfate 1 mg Q4HPRN PRN IV 06/01/24 19:45 Acetaminophen/ Hydrocodone Bitart 1 tab Q6HPRN PRN PO 06/01/24 19:45 Acetaminophen 500 mg Q8HP PRN PO 06/01/24 19:45 06/02/24 00:18 500 MG Ondansetron HCl 4 mg Q6HP PRN IV 06/01/24 19:45 Pantoprazole Sodium 40 mg DAILY@0600 PO 06/02/24 06:00 06/02/24 06:08 40 MG Aspirin 81 mg DAILY PO 06/03/24 10:00 Nicotine 1 patch DAILY TD 06/03/24 10:00 Laboratory Results Laboratory Tests 06/02/24 06:25 Chemistry Test 06/01/24 13:30 06/02/24 06:25 Albumin 4.3 g/dL (3.2-4.8) 3.9 g/dL (3.2-4.8) Calcium Level 9.8 mg/dL (8.7-10.4) 9.3 mg/dL (8.7-10.4) Total Protein 6.6 g/dL (5.7-8.2) 6.2 g/dL (5.7-8.2) Lipid panel Test 06/01/24 13:30 06/02/24 06:25 Lipase 35 U/L (12-53) Cholesterol Level Pending HDL Cholesterol Pending Triglycerides Level 155 mg/dL (< 150) H Cardiac Markers Test 06/01/24 13:30 B-Type Natriuretic Peptide 75.88 pg/mL (0-100) LFT Test 06/01/24 13:30 06/02/24 06:25 Alanine Aminotransferase (ALT) 16 U/L (7-40) 14 U/L (7-40) Alkaline Phosphatase 58 U/L (46-116) 50 U/L (46-116) Aspartate Amino Transferase (AST) 15 U/L (13-40) 13 U/L (13-40) Total Bilirubin 0.4 mg/dL (0.2-1.0) 0.3 mg/dL (0.2-1.0) HgA1c, TSH Test 06/02/24 06:25 Hemoglobin A1c Pending Thyroid Stimulating Hormone (TSH) Pending Urinalysis Test 06/01/24 15:20 Urine Color Light-yellow (Yellow) Urine Clarity Clear (Clear) Urine pH 5.0 (5.0-9.0) Urine Specific [place] 1.009 (1.001-1.035) Urine Protein Negative (Negative) Urine Ketones Negative (Negative) Urine Blood Negative /uL (Negative) Urine Nitrite Negative (Negative) Urine Bilirubin Negative (Negative) Urine Urobilinogen Normal mg/dL (Negative) Urine Leukocyte Esterase Trace /uL (Negative) Urine RBC 1 /hpf (0 - 4) Urine Microscopic WBC 3 /HPF (0-5) Urine Squamous Epithelial Cells Few /hpf (<5) Urine Bacteria Few /hpf (None Seen) H Urine Glucose Normal mg/dL (Normal) Assessment/Plan Assessment/Plan Abdominal pain Chest pain most likely due to GI source Gallstones Hypertension Osteoporosis Chronic low back pain Hypokalemia Systolic heart murmur Nicotine dependence Plan Order a HIDA scan to rule out gallbladder disease Cardiology consult recommended an echocardiogram and Cardiolite stress test Continue the home medications Nicotine patch Protonix Replace potassium as needed Aspirin cardiac diet Full code Plan discussed with: Patient Date of Service: Jun 02, 2024 Billing Provider: KESHIA DOBBS MD Common Visit Codes: NOT BILLABLE KESHIA DOBBS MD Jun 02, 2024 12:37
--- NOTE | 2024-06-02 13:47 | DVHSR ---
APPROVED REPORT EXAM: Two-dimensional and M-mode echocardiogram with Doppler and color Doppler. Blood Pressure: 108/56 mmHg INDICATION ACS RISK FACTORS Height: 50, Weight: 132 DIMENSIONS LVDd (3.8-5.7cm)LA (2D)3.7 (1.9-4.0cm)Aortic Root3.2 (2.0-3.7cm) LVDs (2.5-4.0cm)LA (MM) (1.9-4.0cm)Aortic Cusp Exc1.6 (1.5-2.0cm) EF (%) 69.0 (55-70%)Rt. Atrium3.4 (1.9-4.0cm)Asc. Aorta cm Mitral Valve MitralMitral Stenosis E wave0.71m/sMV Mean GR.mmHg A wave1.08m/sMV Peak GR.mmHg E/A ratio0.72D MVAcm2 DECEL [id number] 1/2 [id number] IVRTmsDop MVA3.71cm2 Aortic Valve Aortic ValveAortic Stenosis V11.47m/Lena Mean GR.6mmHg V21.83m/Lena Peak GR.13mmHg LVOT Diameter1.6 (1.8-2.4cm)Doppler AVA1.61cm2 AI P 1/2 Tywl104.78ms Pulmonic Valve V21.09m/s Tricuspid Valve TR Velocity2.11m/s [id number] Conclusion Technically good study. Sinus rhythm. Normal chamber sizes. Normal valves. EF of 60% with normal RV function. [id number] aortic insufficiency. No pericardial effusion masses or vegetations.
[2024-06-02] MEDS: HYDROcodone-ACET 5/325MG TAB PO PRN (19:50)
[2024-06-03] VITALS (9 sets, daily range): BP systolic 108–128; BP diastolic 55–70; PULSE 57–66; RESP 16–18; TEMP 97.4–98; O2SAT 91–95
[2024-06-03] MEDS: REGADENOSON 0.4 MG/5 ML SYRG IV ONE ×2 (09:40→09:47)
[2024-06-03] MEDS: NICOTINE 7MG/24HR TOPICAL PATCH TD SCH (10:00)
[2024-06-03] MEDS: ASPirin 81 mg TAB PO SCH (10:32)
--- NOTE | 2024-06-03 11:45 | DVHPN2 ---
Subjective She is still complaining of epigastric abdominal pain and chest pain Status post stress test today Changes from previous H/P or p: Changes Eyes: No Pain, No Vision change, No Conjunctivae inflammation, No Eyelid inflammation, No Other, No Redness ENT: No Ear pain, No Ear discharge, No Nose pain, No Nose discharge, No Nose congestion, No Mouth pain, No Mouth swelling, No Throat pain, No Throat swelling, No Other Cardiovascular: Chest Pain Respiratory: No Cough, No Dry, No Shortness of breath, No SOB with excertion, No Wheezing, No Hemoptysis, No Pleuritic Pain, No Sputum, No Other Gastrointestinal: Abdominal Pain Genitourinary: No Dysuria, No Frequency, No Incontinence, No Hematuria, No Retention, No Other Musculoskeletal: No other, No neck pain, No shoulder pain, No arm pain, No back pain, No hand pain, No leg pain, No foot pain Skin: No Rash, No Lesions, No Jaundice, No Bruising, No Other Objective Vitals Vital Signs Date Time Temp Pulse Resp B/P (MAP) Pulse Ox O2 Delivery O2 Flow Rate FiO2 06/03/24 09:00 97.9 61 17 125/55 (78) 92 97.9 06/03/24 08:20 Room Air* 0 21 Intake/Output Intake and Output 06/03/24 07:00 Intake Total 975 ml Balance 975 ml Intake Oral 975 ml # Voids 9 General Appearance: Alert, Oriented X3, Cooperative, No acute distress Lungs: Clear to auscultation, Normal air movement Cardiovascular: Regular rate, Normal S1 Abdomen: Normal bowel sounds, Soft, No tenderness Extremities: No edema Medications Current Medications Medications Dose Ordered Sig/Celestino Route Start Time Stop Time Status Last Admin Dose Admin Nitroglycerin 0.4 mg Q5MINP PRN SL 06/01/24 19:45 Morphine Sulfate 2 mg Q30M PRN IV 06/01/24 19:45 Morphine Sulfate 1 mg Q4HPRN PRN IV 06/01/24 19:45 Acetaminophen/ Hydrocodone Bitart 1 tab Q6HPRN PRN PO 06/01/24 19:45 06/02/24 19:50 1 TAB Acetaminophen 500 mg Q8HP PRN PO 06/01/24 19:45 06/02/24 17:15 500 MG Ondansetron HCl 4 mg Q6HP PRN IV 06/01/24 19:45 Pantoprazole Sodium 40 mg DAILY@0600 PO 06/02/24 06:00 06/02/24 06:08 40 MG Aspirin 81 mg DAILY PO 06/03/24 10:00 06/03/24 10:32 81 MG Nicotine 1 patch DAILY TD 06/03/24 10:00 Laboratory Results Laboratory Tests 06/02/24 06:25 Urinalysis Test 06/01/24 15:20 Urine Color Light-yellow (Yellow) Urine Clarity Clear (Clear) Urine pH 5.0 (5.0-9.0) Urine Specific [place] 1.009 (1.001-1.035) Urine Protein Negative (Negative) Urine Ketones Negative (Negative) Urine Blood Negative /uL (Negative) Urine Nitrite Negative (Negative) Urine Bilirubin Negative (Negative) Urine Urobilinogen Normal mg/dL (Negative) Urine Leukocyte Esterase Trace /uL (Negative) Urine RBC 1 /hpf (0 - 4) Urine Microscopic WBC 3 /HPF (0-5) Urine Squamous Epithelial Cells Few /hpf (<5) Urine Bacteria Few /hpf (None Seen) H Urine Glucose Normal mg/dL (Normal) Assessment/Plan Assessment/Plan Abdominal pain Chest pain most likely due to GI source Gallstones Hypertension Osteoporosis Chronic low back pain Hypokalemia Systolic heart murmur Nicotine dependence Plan Order a HIDA scan to rule out gallbladder disease Cardiology consult recommended an echocardiogram and Cardiolite stress test Continue the home medications Nicotine patch Protonix Replace potassium as needed Aspirin cardiac diet Full code 06/03/2024: Stress test Cardiolite done today pending HIDA scan tomorrow Continue the current management Cardiology is following Plan discussed with: Patient My Orders Orders - KESHIA DOBBS MD Procedure Category Date Status Time Nm Hida Scan NM 06/02/24 Logged 12:30 Cardiac DIET 06/02/24 Transmitted Diet-2gna,Lofat,Lochol Lunch Date of Service: Jun 03, 2024 Billing Provider: KESHIA DOBBS MD Common Visit Codes: NOT BILLABLE KESHIA DOBBS MD Jun 03, 2024 11:45
--- NOTE | 2024-06-03 13:21 | DVHSR ---
APPROVED REPORT Exam: Nuclear Stress Test BMI: 0 Stress Test Details HR Max Heart Rate (APMHR): 148.971481 bpm Target HR (85% APMHR): 125.049907 bpm BP ECG Stress ECG Conclusion no stress induced ischemia lvef 65% NM EXAM: Myocardial Perfusion REST/STRESS Imaging Protocol: Rest Tc-99m/Stress Tc-99m 1 day Resting Data Rest SPECT myocardial perfusion imaging was performed in supine position 60 minutes following the int ravenous injection of 14.7 mCi of Tc-99m Sestamibi. Time of rest injection: 0804 Time of rest imagin Administration Route: IV Administration Site: Right Arm Pharmacologic Stress Pharmacologic stress test was performed by injecting Regadenoson 0.4 mg IV push followed by the intra venous injection of 31 mCi of Tc-99m Sestamibi. Time of stress injection: 0940 Time of stress imagin Administration Route: IV Administration Site: Right Arm Gated Stress SPECT was performed 60 minutes after stress injection. The images were gated to evaluate regional wall motion and calculate left ventricular ejection fracti on. Stress only was performed in the Supine position. Nuclear Conclusion Nuclear Findings: negative for ischemia no stress induced ischemia lvef 65%
--- NOTE | 2024-06-03 15:35 | DVHPN2 ---
Consult Progress Note Date Seen: Jun 03, 2024 Subjective Review of Systems: CVS:Normal, RESPIRATORY:Normal, GI:Abnormal, NEURO:Normal Other Systems: C/o mid to epigastric pain Objective vital signs Vital Sign Date Time Temp Pulse Resp B/P (MAP) Pulse Ox O2 Delivery O2 Flow Rate FiO2 06/03/24 12:53 97.4 65 17 128/65 (86) 91 97.4 06/03/24 08:20 Room Air* 0 21 Total Intake and Output 06/02/24 06/02/24 06/03/24 15:00 23:00 07:00 Intake Total 475 ml 500 ml 0 ml Balance 475 ml 500 ml 0 ml medications Current Medications Medications Dose Ordered Sig/Celestino Route Start Time Stop Time Status Last Admin Dose Admin Nitroglycerin 0.4 mg Q5MINP PRN SL 06/01/24 19:45 Morphine Sulfate 2 mg Q30M PRN IV 06/01/24 19:45 Morphine Sulfate 1 mg Q4HPRN PRN IV 06/01/24 19:45 Acetaminophen/ Hydrocodone Bitart 1 tab Q6HPRN PRN PO 06/01/24 19:45 06/03/24 15:03 1 TAB Acetaminophen 500 mg Q8HP PRN PO 06/01/24 19:45 06/02/24 17:15 500 MG Ondansetron HCl 4 mg Q6HP PRN IV 06/01/24 19:45 Pantoprazole Sodium 40 mg DAILY@0600 PO 06/02/24 06:00 06/02/24 06:08 40 MG Aspirin 81 mg DAILY PO 06/03/24 10:00 06/03/24 10:32 81 MG Nicotine 1 patch DAILY TD 06/03/24 10:00 Examination: LUNGS:Normal, CVS:Normal, NEURO:Normal laboratory and microbiology Laboratory Tests 06/02/24 06:25 Test 06/02/24 06:25 Range/Units Serum Glucose 92 74-106 mg/dL Problem List/Assessment/Plan Problem List/Assessment/Plan Chest pain rule out coronary artery disease Significant family history for CAD Primary hypertension Nicotine dependence Likely GERD Plan/Recommendation (Dr. Cunningham) transthoracic echocardiogram revealed EF 60% with mild to moderate aortic insufficiency. Cardiolite stress test is negative for ischemia. Continue PPI and nicotine patch. Strongly counseled on smoking cessation. There is no further cardiac work-up indicated at this time. Kindly call if in need to re- consult. Thank you for allowing us to participate in this patient's care. This medical document was created using an electronic medical record system with voice recognition software and computerized dictation system. Although this document has been carefully reviewed, there might still be some phonetic and typographical errors. Occasional wrong-word or ``sound-alike substitutions may have occurred due to the inherent limitations of voice recognition software. These areas are purely typographical due to imperfections of the software programs and do not reflect any compromise in the patient's medical care. Please read the chart carefully and recognize, using context, where these substitutions have occurred. Plan discussed with: Patient, Other Date of Service: Jun 03, 2024 Billing Provider: GENOVEVA WOODY Cardiology Common Codes: [id number] INP/OBS CARE(Mod) GENOVEVA WOODY Jun 03, 2024 15:35
[2024-06-04] VITALS (9 sets, daily range): BP systolic 108–148; BP diastolic 57–91; PULSE 53–94; RESP 16–19; TEMP 97.8–98.5; O2SAT 93–98
--- NOTE | 2024-06-04 11:21 | DVHPN2 ---
Subjective She is still complaining of the abdominal pain intermittently HIDA scan could not be done today Changes from previous H/P or p: Changes Eyes: No Pain, No Vision change, No Conjunctivae inflammation, No Eyelid inflammation, No Other, No Redness ENT: No Ear pain, No Ear discharge, No Nose pain, No Nose discharge, No Nose congestion, No Mouth pain, No Mouth swelling, No Throat pain, No Throat swelling, No Other Cardiovascular: Chest Pain Respiratory: No Cough, No Dry, No Shortness of breath, No SOB with excertion, No Wheezing, No Hemoptysis, No Pleuritic Pain, No Sputum, No Other Gastrointestinal: Abdominal Pain Genitourinary: No Dysuria, No Frequency, No Incontinence, No Hematuria, No Retention, No Other Musculoskeletal: No other, No neck pain, No shoulder pain, No arm pain, No back pain, No hand pain, No leg pain, No foot pain Skin: No Rash, No Lesions, No Jaundice, No Bruising, No Other Objective Vitals Vital Signs Date Time Temp Pulse Resp B/P (MAP) Pulse Ox O2 Delivery O2 Flow Rate FiO2 06/04/24 08:42 97.8 58 19 110/64 (79) 93 97.8 06/04/24 07:34 Room Air* 0 21 Intake/Output Intake and Output 06/04/24 07:00 Intake Total 1550 ml Balance 1550 ml Intake Oral 1550 ml # Voids 9 General Appearance: Alert, Oriented X3, Cooperative, No acute distress Lungs: Clear to auscultation, Normal air movement Cardiovascular: Regular rate, Normal S1 Abdomen: Normal bowel sounds, Soft, No tenderness Extremities: No edema Medications Current Medications Medications Dose Ordered Sig/Celestino Route Start Time Stop Time Status Last Admin Dose Admin Nitroglycerin 0.4 mg Q5MINP PRN SL 06/01/24 19:45 Morphine Sulfate 2 mg Q30M PRN IV 06/01/24 19:45 Morphine Sulfate 1 mg Q4HPRN PRN IV 06/01/24 19:45 Acetaminophen/ Hydrocodone Bitart 1 tab Q6HPRN PRN PO 06/01/24 19:45 06/03/24 21:50 1 TAB Acetaminophen 500 mg Q8HP PRN PO 06/01/24 19:45 06/02/24 17:15 500 MG Ondansetron HCl 4 mg Q6HP PRN IV 06/01/24 19:45 Pantoprazole Sodium 40 mg DAILY@0600 PO 06/02/24 06:00 06/02/24 06:08 40 MG Nicotine 1 patch DAILY TD 06/03/24 10:00 Laboratory Results Laboratory Tests 06/02/24 06:25 Urinalysis Test 06/01/24 15:20 Urine Color Light-yellow (Yellow) Urine Clarity Clear (Clear) Urine pH 5.0 (5.0-9.0) Urine Specific [place] 1.009 (1.001-1.035) Urine Protein Negative (Negative) Urine Ketones Negative (Negative) Urine Blood Negative /uL (Negative) Urine Nitrite Negative (Negative) Urine Bilirubin Negative (Negative) Urine Urobilinogen Normal mg/dL (Negative) Urine Leukocyte Esterase Trace /uL (Negative) Urine RBC 1 /hpf (0 - 4) Urine Microscopic WBC 3 /HPF (0-5) Urine Squamous Epithelial Cells Few /hpf (<5) Urine Bacteria Few /hpf (None Seen) H Urine Glucose Normal mg/dL (Normal) Assessment/Plan Assessment/Plan Abdominal pain Chest pain most likely due to GI source Gallstones Hypertension Osteoporosis Chronic low back pain Hypokalemia Systolic heart murmur Nicotine dependence Plan Order a HIDA scan to rule out gallbladder disease Cardiology consult recommended an echocardiogram and Cardiolite stress test Continue the home medications Nicotine patch Protonix Replace potassium as needed Aspirin cardiac diet Full code 06/03/2024: Stress test Cardiolite done today pending HIDA scan tomorrow Continue the current management Cardiology is following 06/04/2024: HIDA scan to be done tomorrow Monitor the patient closely Continue the current management Stress test was negative Plan discussed with: Patient Date of Service: Jun 04, 2024 Billing Provider: KESHIA DOBBS MD Common Visit Codes: NOT BILLABLE KESHIA DOBBS MD Jun 04, 2024 11:21
[2024-06-04] MEDS: DOCUSATE SOD 100 MG CAP PO PRN (22:40)
[2024-06-05] VITALS (8 sets, daily range): BP systolic 122–145; BP diastolic 54–69; PULSE 53–74; RESP 16–18; TEMP 97.8–98.8; O2SAT 90–100
[2024-06-05] MEDS: FLEET ENEMA(ADULT) 135 ML PR ONE (10:00)
[2024-06-05] MEDS: POLYETHYLENE GLYCOL 17 GM PWDR PO ONE (10:07)
--- NOTE | 2024-06-05 16:04 | DVHPN2 ---
Subjective c/o abd pain c/o constipation c/o cough HIDA not done due to constipation Changes from previous H/P or p: Changes Eyes: No Pain, No Vision change, No Conjunctivae inflammation, No Eyelid inflammation, No Other, No Redness ENT: No Ear pain, No Ear discharge, No Nose pain, No Nose discharge, No Nose congestion, No Mouth pain, No Mouth swelling, No Throat pain, No Throat swelling, No Other Cardiovascular: Chest Pain Respiratory: No Cough, No Dry, No Shortness of breath, No SOB with excertion, No Wheezing, No Hemoptysis, No Pleuritic Pain, No Sputum, No Other Gastrointestinal: Abdominal Pain Genitourinary: No Dysuria, No Frequency, No Incontinence, No Hematuria, No Retention, No Other Musculoskeletal: No other, No neck pain, No shoulder pain, No arm pain, No back pain, No hand pain, No leg pain, No foot pain Skin: No Rash, No Lesions, No Jaundice, No Bruising, No Other Objective Vitals Vital Signs Date Time Temp Pulse Resp B/P (MAP) Pulse Ox O2 Delivery O2 Flow Rate FiO2 06/05/24 13:00 98.4 61 18 126/54 (78) 90 98.4 06/05/24 08:00 Room Air* 0 21 Intake/Output Intake and Output 06/05/24 07:00 Intake Total 1260 ml Balance 1260 ml Intake Oral 1260 ml # Voids 12 # Bowel Movements 2 General Appearance: Alert, Oriented X3, Cooperative, No acute distress Lungs: Clear to auscultation, Normal air movement Cardiovascular: Regular rate, Normal S1 Abdomen: Normal bowel sounds, Soft, No tenderness Extremities: No edema Medications Current Medications Medications Dose Ordered Sig/Celestino Route Start Time Stop Time Status Last Admin Dose Admin Nitroglycerin 0.4 mg Q5MINP PRN SL 06/01/24 19:45 Morphine Sulfate 2 mg Q30M PRN IV 06/01/24 19:45 Morphine Sulfate 1 mg Q4HPRN PRN IV 06/01/24 19:45 Acetaminophen/ Hydrocodone Bitart 1 tab Q6HPRN PRN PO 06/01/24 19:45 06/04/24 22:41 1 TAB Acetaminophen 500 mg Q8HP PRN PO 06/01/24 19:45 06/02/24 17:15 500 MG Ondansetron HCl 4 mg Q6HP PRN IV 06/01/24 19:45 Pantoprazole Sodium 40 mg DAILY@0600 PO 06/02/24 06:00 06/02/24 06:08 40 MG Nicotine 1 patch DAILY TD 06/03/24 10:00 06/05/24 08:58 1 PATCH Docusate Sodium 200 mg BIDPRN PRN PO 06/04/24 21:00 06/05/24 08:55 200 MG Laboratory Results Laboratory Tests 06/02/24 06:25 Urinalysis Test 06/01/24 15:20 Urine Color Light-yellow (Yellow) Urine Clarity Clear (Clear) Urine pH 5.0 (5.0-9.0) Urine Specific [place] 1.009 (1.001-1.035) Urine Protein Negative (Negative) Urine Ketones Negative (Negative) Urine Blood Negative /uL (Negative) Urine Nitrite Negative (Negative) Urine Bilirubin Negative (Negative) Urine Urobilinogen Normal mg/dL (Negative) Urine Leukocyte Esterase Trace /uL (Negative) Urine RBC 1 /hpf (0 - 4) Urine Microscopic WBC 3 /HPF (0-5) Urine Squamous Epithelial Cells Few /hpf (<5) Urine Bacteria Few /hpf (None Seen) H Urine Glucose Normal mg/dL (Normal) Assessment/Plan Assessment/Plan Abdominal pain Chest pain most likely due to GI source Gallstones Hypertension Osteoporosis Chronic low back pain Hypokalemia Systolic heart murmur Nicotine dependence Plan Order a HIDA scan to rule out gallbladder disease Cardiology consult recommended an echocardiogram and Cardiolite stress test Continue the home medications Nicotine patch Protonix Replace potassium as needed Aspirin cardiac diet Full code 06/03/2024: Stress test Cardiolite done today pending HIDA scan tomorrow Continue the current management Cardiology is following 06/04/2024: HIDA scan to be done tomorrow Monitor the patient closely Continue the current management Stress test was negative 06/05/24: HIDA pending Cough: Check COVID & Influenza, Robitussin Abd pain Chect pain: Atypical Constipation: Lactulose Plan discussed with: Patient My Orders Orders - KESHIA DOBBS MD Procedure Category Date Status Time Covid19 Antigen Ratna LAB 06/05/24 Transmitted Rapid Influenza A&B LAB 06/05/24 Transmitted 16:00 Lactulose Oral PHA 06/05/24 Logged 16:00 Date of Service: Jun 05, 2024 Billing Provider: KESHIA DOBBS MD Common Visit Codes: NOT BILLABLE KESHIA DOBBS MD Jun 05, 2024 16:04
[2024-06-05] MEDS: LACTULOSE 20Gm/30ML SOLN PO ONE (16:30)
[2024-06-05 17:53] LABS: COVID19 ANTIGEN SOFIA FIA NEGATIVE (NEGATIVE); Rapid Influenza A Negative (Negative); Rapid Influenza B Negative (Negative)
[2024-06-05] MEDS: guaiFENesin-DM 100/10mg/5ml SYR PO PRN (21:35)
[2024-06-06 00:48] VITALS: BP 130/61; PULSE 16; TEMP 97.6; O2SAT 100
[2024-06-06 05:00] VITALS: BP 131/47; PULSE 53; RESP 16; TEMP 97.6; O2SAT 94
[2024-06-06 08:00] VITALS: PULSE 54; PULSE 64; RESP 17; O2SAT 95
[2024-06-06 08:32] VITALS: BP 123/66; PULSE 64; RESP 17; TEMP 98.8; O2SAT 95
--- NOTE | 2024-06-06 09:01 | DVH ---
Procedure: NM NM HIDA SCAN Exam Date: 06/06/2024 07:17 AM Clinical History: abd pain Comparison Study: 06/01/24 Nuclear Medicine Hepatobiliary Scan. Technique: Following the intravenous administration of 3.3 mCi of technetium 99m labeled Choletec multiple plana r abdominal planar images were obtained in anterior projection in 1 minute intervals for 60 minutes . Right lateral images were obtained at 60 minutes after injection. Findings: The liver appears grossly normal in size. There is no abnormal persistence of the cardiac or blood po ol activity. There is visualization of the gallbladder and excretion of activity into the small leobardo l. Impression: Unremarkable hepatobiliary study without evidence of acute cholecystitis.
[2024-06-06] MEDS ORDERED: PANT40TA2 PO (10:28)
--- NOTE | 2024-06-06 10:34 | DVHDS2 ---
Discharge Summary Date of Admission Jun 01, 2024 at 19:38 Date of Discharge: Jun 06, 2024 Labs/Diagnostic Data: Laboratory Results Test 06/05/24 16:00 06/02/24 06:25 06/01/24 17:54 06/01/24 15:20 Influenza Type A Antigen Negative (Negative) Influenza Type B Antigen Negative (Negative) SARS-CoV-2 Antigen (Rapid) Negative (NEGATIVE) White Blood Count 9.2 10^3/uL (4.4-10.8) Red Blood Count 3.61 10^6/uL (4.0-5.20) Hemoglobin 11.9 g/dL (12.2-16.2) Hematocrit 35.3 % (36.0-46.0) Mean Corpuscular Volume 97.9 fL (80.0-100.0) Mean Corpuscular Hemoglobin 33.1 pg (28.0-32.0) Mean Corpuscular Hemoglobin Concent 33.8 g/dL (32.0-36.0) Red Cell Distribution Width 12.9 % (11.8-14.3) Platelet Count 250 10^3/uL (140-450) Mean Platelet Volume 8.0 fL (6.9-10.8) Neutrophils (%) (Auto) 65.7 % (37.0-80.0) Lymphocytes (%) (Auto) 25.0 % (10.0-50.0) Monocytes (%) (Auto) 6.4 % (0.0-12.0) Eosinophils (%) (Auto) 2.3 % (0.0-7.0) Basophils (%) (Auto) 0.6 % (0.0-2.0) Neutrophils # (Auto) 6.0 10 ^3/uL (1.6-8.6) Lymphocytes # (Auto) 2.3 10 ^3/uL (0.4-5.4) Monocytes # (Auto) 0.6 10 ^3/uL (0-1.3) Eosinophils # (Auto) 0.2 10 ^3/uL (0-0.8) Basophils # (Auto) 0.1 10 ^3/uL (0-0.2) Nucleated Red Blood Cells 0.1 % Sodium Level 141 mmol/L (136-145) Potassium Level 3.8 mmol/L (3.5-5.1) Chloride Level 109 mmol/L (98-107) Carbon Dioxide Level 25 mmol/L (20-31) Anion Gap 7 (5-15) Blood Urea Nitrogen 16 mg/dL (9-23) Creatinine 0.70 mg/dL (0.550-1.02) Glomerular Filtration Rate Calc 92 mL/min (>90) BUN/Creatinine Ratio 22.9 (10.0-20.0) Serum Glucose 92 mg/dL (74-106) Hemoglobin A1c 5.6 % A1C (<5.7) Calcium Level 9.3 mg/dL (8.7-10.4) Total Bilirubin 0.3 mg/dL (0.2-1.0) Aspartate Amino Transferase (AST) 13 U/L (13-40) Alanine Aminotransferase (ALT) 14 U/L (7-40) Alkaline Phosphatase 50 U/L (46-116) Total Protein 6.2 g/dL (5.7-8.2) Albumin 3.9 g/dL (3.2-4.8) Triglycerides Level 155 mg/dL (< 150) Cholesterol Level 133 mg/dL (< 200) LDL Cholesterol 88 mg/dL (< 100) HDL Cholesterol 30 mg/dL (40-59) Thyroid Stimulating Hormone (TSH) 2.00 uIU/mL (0.55-4.78) Troponin I High Sensitivity < 3 ng/L (</=34) Urine Color Light-yellow (Yellow) Urine Clarity Clear (Clear) Urine pH 5.0 (5.0-9.0) Urine Specific [place] 1.009 (1.001-1.035) Urine Protein Negative (Negative) Urine Ketones Negative (Negative) Urine Blood Negative /uL (Negative) Urine Nitrite Negative (Negative) Urine Bilirubin Negative (Negative) Urine Urobilinogen Normal mg/dL (Negative) Urine Leukocyte Esterase Trace /uL (Negative) Urine RBC 1 /hpf (0 - 4) Urine Microscopic WBC 3 /HPF (0-5) Urine Squamous Epithelial Cells Few /hpf (<5) Urine Bacteria Few /hpf (None Seen) Urine Glucose Normal mg/dL (Normal) Test 06/01/24 13:30 Erythrocyte Sedimentation Rate 19 mm/hr (0-20) C-Reactive Protein High Sensitivity 0.26 mg/dL (<1.0) B-Type Natriuretic Peptide 75.88 pg/mL (0-100) Lipase 35 U/L (12-53) Other Laboratory Tests 06/02/24 06:25 Brief Hx & Hospital Course: Final diagnoses: Abdominal pain most likely due to GERD Chest pain most likely due to GI source GERD Gallstones, asymptomatic Hypertension Osteoporosis Chronic low back pain Hypokalemia Nicotine dependence Constipation 73-year-old female who was admitted for abdominal pain and chest pain. The pain was in the epigastric area. Cardiology recommended a stress test which was negative She also her then echocardiogram because she had a systolic murmur which showed [id number] aortic insufficiency and normal ejection fraction of 60% Because she continued to have the abdominal pain an ultrasound of the gallbladder showed gallstones but no evidence of cholecystitis and also a HIDA scan was negative for acute cholecystitis She was also having constipation and she was given laxatives and once she had a bowel movement yesterday her abdominal pain is better now Most likely the patient abdominal pain is due to GERD She will be discharged home on Protonix 40 mg p.o. daily She was educated about cutting down on her caffeine since she drinks significant amount of soda drinks and tea and coffee Follow up with her primary care physician as soon as possible Resume other home medications Condition at Discharge: Stable Final Diagnosis/Problems List Abdominal pain most likely due to GERD Chest pain most likely due to GI source GERD Gallstones, asymptomatic Hypertension Osteoporosis Chronic low back pain Hypokalemia Nicotine dependence Discharge Disposition: Home SNF Discharge Will this Physician continue t: No Discharge Statement: "Patient was advised to return to the ER or call 911 if any headaches, dizziness, shortness of breath, chest pain, abdominal pain, bleeding, fevers, or worsening of medical condition. Patient was counseled about treatment plan, medications, possible side effects, patientverbalized understanding. All questions were answered to the best of my ability. This discharge took greater then 30 minutes in planning, reviewing documentation, counseling the patient, and discussing with other team members." ASSESSMENT ASSESSMENT Assessment Date of Service: Jun 06, 2024 Billing Provider: KESHIA DOBBS MD Common Visit Codes: NOT BILLABLE KESHIA DOBBS MD Jun 06, 2024 10:34
[2024-06-06 11:56] VITALS: BP 123/66; PULSE 64; RESP 17; TEMP 98.8; O2SAT 95
== END 2024-06-06 12:30 | disposition home or self-care (01) | DRG 392 ==
LOC: ER 13:17 → OVERFLOW 19:38 → TELE-CENTR 19:41
PROVIDERS: ADMIT Internal Medicine Geriatric Medicine; ATTEND Internal Medicine Geriatric Medicine
DX: K21.9 Gastro-esophageal reflux disease without esophagitis (principal); R07.89 Other chest pain; E87.6 Hypokalemia; K80.20 Calculus of gallbladder without cholecystitis without obstruction; R01.1 Cardiac murmur, unspecified; K59.00 Constipation, unspecified; G89.29 Other chronic pain; I35.1 Nonrheumatic aortic (valve) insufficiency; Z20.822 Contact with and (suspected) exposure to COVID-19; F17.210 Nicotine dependence, cigarettes, uncomplicated; I10 Essential (primary) hypertension; M51.369 Other intervertebral disc degeneration, lumbar region without mention of lumbar back pain or lower extremity pain; M47.816 Spondylosis without myelopathy or radiculopathy, lumbar region; M81.0 Age-related osteoporosis without current pathological fracture; Z88.5 Allergy status to narcotic agent; Z79.899 Other long term (current) drug therapy; Z98.891 History of uterine scar from previous surgery; Z79.1 Long term (current) use of non-steroidal anti-inflammatories (NSAID); Z79.891 Long term (current) use of opiate analgesic; Z82.49 Family history of ischemic heart disease and other diseases of the circulatory system; Z79.82 Long term (current) use of aspirin; Z90.710 Acquired absence of both cervix and uterus
CPT/HCPCS: 36415; 71045; 74176; 76705; 78226; 78452; 80053; 80061; 81001; 83036; 83690; 83880; 84443; 84484; 85025; 85652; 86141; 87426; 87804; 93005; 93017; 93306; 96374; 96375; G0378; J2405; J2470